=== PATIENT | male | born 1995 | race Two or more races ===

== ENCOUNTER 2017-09-03 15:53 | Emergency (ER) | payer SELFPAY ==
--- NOTE | 2017-09-03 16:45 | HMH.EDUTC ---
[facility] Disposition Clinical Impression: Polyarthralgia Disposition: Home, Self-Care Condition on Discharge: Good Prescriptions: predniSONE [Prednisone 20mg Tab] 20 mg PO BID 5 Days #10 tab Referrals: Lynn Thacker PA [Emergency Provider] - Time of Disposition: 16:58 Medical Decision Making - Michael Inquiry Pt receiving controlled substance: No Vital Signs: 09/03/17 16:49 Temperature 98.4 F Temperature Source Temporal Artery Scan Pulse Rate [Right Radial] 82 Respiratory Rate 18 Blood Pressure [Right Arm] 122/80 Blood Pressure Mean [Right Arm] 94 Blood Pressure Source [Right Arm] Automatic Cuff Blood Pressure Position [Right Arm] Sitting 02 Sat by Pulse Oximetry 99 Oxygen Delivery Method Room Air [facility] HPI - General Stated complaint: hip problems Time Seen by Provider: 09/03/17 16:45 - History of Present Illness Provider Complaint: Patient has had pain and swelling in his left knee off and on for several years. When he was seen in [place] he was told he had a type of arthritis that is usually only seen in men. A few weeks ago he started having pain in both hips as well. He went to the chiropractor who did Xrays and told him that she thought he has ankylosing spondylitis. Suggested he get a PCP for confirmation and referral. Onset (ago): week(s) (3) Location: back, lower extremity Radiation: back Quality: aching Associated symptoms: denies other symptoms Treatments prior to arrival: NSAID - Related Data Previous Rx's Medication Instructions Recorded predniSONE [Prednisone 20mg 20 mg PO BID 5 Days #10 tab 09/03/17 Tab] Allergies Allergy/AdvReac Type Severity Reaction Status Date / Time No Known Allergies Allergy Verified 09/03/17 16:15 [facility] History I have reviewed the patient's past medical history: Yes Medical History: Denies:: Cancer, Diabetes Mellitus Type 1, Diabetes Mellitus Type 2, MRSA Other Medical History: Reports: Arthritis Amputation: No Fractures: No - Social History Smoking Status: Never smoker Alcohol Intake: never - Psychiatric History Expresses thoughts of harming self/others: None Suicide Plan Description: No Plan ROS Obtained: Yes All systems reviewed & no additional complaints - Musculoskeletal Musculoskeletal: Reports joint pain, Reports back pain, Reports joint stiffness, Reports joint swelling, Reports limited range of motion, Reports stiffness Physical Exam - General General appearance: alert, in no apparent distress - Head Head exam: atraumatic, normocephalic, normal inspection - Eye Eye exam: Present: normal appearance, PERRL, EOMI - ENT ENT exam: Present: normal exam, normal oropharynx, mucous membranes moist, TM's normal bilaterally, normal external ear exam - Neck Neck exam: Present: normal inspection, full ROM, trachea midline. Absent: meningismus, lymphadenopathy - Chest Chest inspection: Present: normal inspection, symmetric chest wall rise. Absent: tenderness - Respiratory Respiratory exam: Present: normal lung sounds bilaterally. Absent: respiratory distress - Cardiovascular Cardiovascular exam: Present: regular rate, normal rhythm. Absent: JVD - Abdominal Exam Abdominal exam: Present: soft, normal bowel sounds. Absent: distention, tenderness, guarding - Extremities Exam Extremities exam: Present: normal inspection, full ROM, normal capillary refill. Absent: calf tenderness - Expanded Lower Extremity Exam Left Hip/Pelvis exam: Present: tenderness, deformity - Back Exam Back exam: Present: normal inspection, tenderness, vertebral tenderness - Neurological Exam Neurological exam: Present: alert, oriented X3 - Psychiatric Psychiatric exam: Present: normal affect, normal mood - Skin Skin exam: Present: warm, dry, intact, normal color - Lymphatic Lymphatic Findings: no adenopathy
[2017-09-03 16:49] VITALS: BP 122/80; PULSE 82; RESP 18; TEMP 36.9; O2SAT 99; BMI 26.6
[2017-09-03 17:59] VITALS: BP 118/65; PULSE 75; RESP 18; TEMP 36.8; O2SAT 100
== END 2017-09-03 17:45 | disposition home or self-care (01) ==
PROVIDERS: Emergency Provider Physician Assistant
DX: M25.50 Pain in unspecified joint (principal)
CPT/HCPCS: 99201

== ENCOUNTER → 2017-09-13 08:54 | Outpatient (CLI) | payer SELFPAY ==
[2017-09-13 14:01] LABS: C-Reactive Protein < 0.2 mg/L (0.0-0.9)
[2017-09-14 15:34] LABS: RA Latex Turbid. 19.5 IU/mL (0.0-13.9)
[2017-09-20 16:32] LABS: HLA-B27 Positive (.)
== END ==
PROVIDERS: Visit Provider Physician Assistant
DX: R53.83 Other fatigue (principal); M54.5 Low back pain; G89.29 Other chronic pain; M25.50 Pain in unspecified joint
CPT/HCPCS: 86140; 86431; 86812

== ENCOUNTER → 2018-09-19 14:15 | Outpatient (CLI) | payer SELFPAY ==
[2018-09-19 18:36] LABS: PH,Semen 8.5 (7.3-8.3); Semen Viscosity Normal (Normal)
[2018-09-19 18:37] LABS: 3Hr Motility Quality Rapid Progression (Mod-Rapid); 3Hr Sperm Motility 80 % (50-60); Motility Quality Rapid Progression (Mod-Rapid); Sperm Count 79 mil/mm3 (20-160); Sperm Motility 90 % (50-90)
[2018-09-19 18:38] LABS: Sperm Morphology Normal (Normal)
== END ==
PROVIDERS: Visit Provider Obstetrics & Gynecology
DX: Z31.41 Encounter for fertility testing (principal)
CPT/HCPCS: 89320

== ENCOUNTER → 2019-07-25 16:33 | Outpatient (CLI) | payer OTHER, SELFPAY ==
[2019-07-25 17:10] LABS: Basophils % 0.4 % (0.1-2.0); Eosinophils # 0.3 K/mm3 (0.0-0.4); Eosinophils % 4.5 % (0.1-12.0); Hematocrit 50.7 % (42.0-52.0); Hemoglobin 17.6 g/dL (14.1-18.0); Lymphocytes # 1.4 K/mm3 (0.7-4.5); Lymphocytes % 20.2 % (10-50); Mean Corpuscular HGB Conc 34.6 g/dL (31.8-35.4); Mean Corpuscular Hemoglobin 30.8 pg (27.0-31.2); Monocytes # 0.5 K/mm3 (0.1-1.0); Monocytes % 6.5 % (1.7-9.3); Neutrophils # 4.8 K/mm3 (1.8-7.8); Neutrophils % 68.4 % (37.0-80.0); Platelet Count 240 K/mm3 (142-424); Red Cell Distribution Width 13.2 % (11.5-17.5)
[2019-07-25 18:05] LABS: Erythrocyte Sedimentation Rate 2 mm/hr (0-15)
[2019-07-25 18:39] LABS: Alanine Aminotransferase 94 U/L (12-78); Albumin Level 4.4 gm/dL (3.4-5.0); Albumin/Globulin Ratio 1.4 (1.1-1.8); Alkaline Phosphatase 94 U/L (46-116); Anion Gap 15.8 mEq/L (5-15); Aspartate Amino Transferase 32 U/L (15-37); Bilirubin,Total 0.9 mg/dL (0.2-1.0); Blood Urea Nitrogen 13 mg/dL (7-18); C-Reactive Protein 0.4 mg/dL (0.0-0.9); Calcium 9.2 mg/dL (8.5-10.1); Carbon Dioxide 27 mmol/L (21.0-32.0); Chloride 104 mmol/L (98-107); Chol/HDL Ratio 6.6 (1-3.5); Cholesterol 212 mg/dL (140-200); Creatinine,Serum 0.82 mg/dL (0.70-1.30); Estimated Glomerular Filt Rate 114 ml/min (>60); GFR (African American) 139 ML/MIN (>60); Globulin 3.1 gm/dl (1.3-3.2); Glucose 91 mg/dL (74-106); HDL Cholesterol 32 mg/dL (27-67); LDL Cholesterol 147 mg/dL (0-130); Potassium 3.8 mmoL/L (3.5-5.1); Sodium 143 mmol/L (136-145); T4 (Thyroxine) 6.4 ug/dl (4.7-13.3); Thyroid Stimulating Hormone 1.02 uIU/ml (0.358-3.740); Total Protein,Serum 7.5 gm/dL (6.4-8.2); Triglycerides 163 mg/dL (30-200); VLDL Cholesterol 33 mg/dL (0-40)
[2019-07-27 15:30] LABS: Vitamin D 25 Hydroxy 8.9 ng/mL (30.0-100.0)
== END ==
PROVIDERS: Visit Provider Physician Assistant
DX: R35.0 Frequency of micturition (principal); M45.9 Ankylosing spondylitis of unspecified sites in spine; E55.9 Vitamin D deficiency, unspecified
CPT/HCPCS: 80053; 80061; 82652; 84436; 84443; 85025; 85651; 86140

== ENCOUNTER → 2019-08-22 13:02 | Outpatient (CLI) | payer OTHER, SELFPAY ==
--- NOTE | 2019-08-22 13:03 | MR_ITS ---
PROCEDURE: MR LUMBAR SPINE WO CON CLINICAL INDICATION: Ankylosing spondylitis Bilateral back pain radiating into the hips COMPARISON: No exams were available for comparison TECHNIQUE: Standard multiplanar multiecho sequences are performed without contrast. 3-D MIP and myelographic images are also rendered and reviewed FINDINGS: There is normal alignment. The spinal cord ends at the L1 level. The disc spaces are well preserved. No significant arthritic changes. No disc bulges protrusions or herniations evident. No fracture or dislocation. IMPRESSION: Negative MRI of the lumbar spine Dictated by: Roly Kenney MD 08/23/2019 09:40 Electronically signed by Roly Kenney MD in [place] 08/23/2019 09:40
== END ==
PROVIDERS: PCP Physician Assistant; Visit Provider Physician Assistant
DX: M45.9 Ankylosing spondylitis of unspecified sites in spine (principal)
CPT/HCPCS: 72148; 76376

== ENCOUNTER → 2021-10-13 08:51 | Outpatient (CLI) | payer SELFPAY ==
--- NOTE | 2021-10-13 08:57 | US_ITS ---
FINAL REPORT CLINICAL HISTORY: ABD PAIN FINDINGS: Ultrasound images of the right upper quadrant were obtained. The liver parenchyma is increased echogenicity. The gallbladder is incompletely distended. There is sludge in the gallbladder. There are no gallstones. The common duct is normal. Limited images of the right kidney are unremarkable. IMPRESSION: Fatty liver. Sludge in the gallbladder. Reviewed, Interpreted and Dictated by Siddharth Pablo MD Transcribed by Victorino Jones Authenticated by Siddharth Pablo MD on 10/13/2021 11:36:[address] [facility]
== END ==
PROVIDERS: PCP Nurse Practitioner Family; Visit Provider Nurse Practitioner Family
DX: R10.11 Right upper quadrant pain (principal); R74.01 Elevation of levels of liver transaminase levels
CPT/HCPCS: 76705

== ENCOUNTER → 2022-05-03 10:10 | Outpatient (CLI) | payer OTHER, SELFPAY ==
[2022-05-03 20:07] LABS: Basophils # 0.1 K/mm3 (0-0.2); Basophils % 0.8 % (0.1-2.0); Eosinophils # 0.3 K/mm3 (0.0-0.4); Eosinophils % 5.2 % (0.1-12.0); Hematocrit 52.7 % (42.0-52.0); Lymphocytes # 1.8 K/mm3 (0.7-4.5); Lymphocytes % 31.9 % (10-50); Mean Corpuscular HGB Conc 34.3 g/dL (31.8-35.4); Mean Corpuscular Hemoglobin 31.7 pg (27.0-31.2); Mean Corpuscular Volume 92.6 fl (80-94); Mean Platelet Volume 10.2 fl (7.4-10.4); Monocytes # 0.3 K/mm3 (0.1-1.0); Monocytes % 5.6 % (1.7-9.3); Neutrophils # 3.2 K/mm3 (1.8-7.8); Neutrophils % 56.4 % (37.0-80.0); Platelet Count 255 K/mm3 (142-424); Red Blood Count 5.69 M/mm3 (4.60-6.20); Red Cell Distribution Width 13.8 % (11.5-17.5); White Blood Count 5.6 K/mm3 (4.8-10.8)
[2022-05-03 20:16] LABS: Alanine Aminotransferase 68 U/L (12-78); Albumin Level 4.9 g/dl (3.5-5.0); Albumin/Globulin Ratio 1.8 (1.1-1.8); Alkaline Phosphatase 109 U/L (38-126); Anion Gap 20.1 mEq/L (5-15); Aspartate Amino Transferase 42 U/L (17-59); Bilirubin,Total 1.1 mg/dl (0.2-1.3); Blood Urea Nitrogen 14 mg/dl (9-20); Calcium 10.1 mg/dl (8.4-10.2); Carbon Dioxide 25 mmol/L (22.0-30.0); Chloride 99 mmol/L (98-107); Chol/HDL Ratio 7.1 (1-3.5); Cholesterol 220 mg/dl (140-200); Estimated Glomerular Filt Rate 134 ml/min (>60); GFR (African American) 162 ML/MIN (>60); Globulin 2.8 g/dL (1.3-3.2); Glucose 97 mg/dl (74-100); HDL Cholesterol 31 mg/dl (40-60); Potassium 4.1 mmoL/L (3.5-5.1); Sodium 140 mmol/L (136-145); Total Protein,Serum 7.7 g/dl (6.3-8.2); Triglycerides 189 mg/dl (30-150); VLDL Cholesterol 38 mg/dL (0-40)
[2022-05-03 20:27] LABS: Direct LDL Cholesterol 120.38 mg/dL (100-129)
[2022-05-03 20:34] LABS: 25-OH Vitamin D, Total 14.4 ng/mL (30-100)
[2022-05-03 20:47] LABS: Thyroid Stimulating Hormone 1.05 uIU/mL (0.465-4.68)
== END ==
PROVIDERS: PCP Student in an Organized Health Care Education/Training Program; Visit Provider Student in an Organized Health Care Education/Training Program
DX: M45.9 Ankylosing spondylitis of unspecified sites in spine (principal); R53.83 Other fatigue
CPT/HCPCS: 80053; 80061; 82306; 84443; 85025

== ENCOUNTER → 2023-03-16 08:22 | Outpatient (CLI) | payer SELFPAY ==
--- NOTE | 2023-03-16 08:34 | US_ITS ---
FINAL REPORT TECHNIQUE: Sonographic images of the right upper quadrant were obtained. CLINICAL HISTORY: RUQ PAIN COMPARISON: 10/13/2021 FINDINGS: PANCREAS: Obscured. LIVER: Fatty infiltrated. No focal hepatic lesion. No intrahepatic biliary ductal dilatation. GALLBLADDER: No gallstones. No gallbladder wall thickening or pericholecystic fluid. COMMON DUCT: 3 mm. Normal for age. RIGHT KIDNEY: The right kidney measures 11.8 cm. There is no hydronephrosis, mass, or stone. FREE FLUID: None. IMPRESSION: Fatty liver. Authenticated and ERN
== END ==
LOC: RAD 08:23
PROVIDERS: PCP Nurse Practitioner Family; Visit Provider Nurse Practitioner Family
DX: R10.11 Right upper quadrant pain (principal)
CPT/HCPCS: 76705

== ENCOUNTER → 2023-05-31 10:03 | Outpatient (CLI) | payer SELFPAY ==
[2023-05-31 19:19] LABS: Anion Gap 14.8 mEq/L (5-15); Blood Urea Nitrogen 10 mg/dl (9-20); Calcium 8.8 mg/dl (8.4-10.2); Carbon Dioxide 24 mmol/L (22.0-30.0); Chloride 104 mmol/L (98-107); Estimated Glomerular Filt Rate 133 ml/min (>60); GFR (African American) 161 ML/MIN (>60); Glucose 85 mg/dl (74-100); Potassium 3.8 mmoL/L (3.5-5.1); Sodium 139 mmol/L (136-145)
== END ==
LOC: LAB.DROPOF 06-01 10:03
PROVIDERS: PCP Family Medicine; Visit Provider Family Medicine
DX: R35.0 Frequency of micturition (principal)
CPT/HCPCS: 80048

== ENCOUNTER 2024-06-17 10:34 | Outpatient (CLI) | payer BC, SELFPAY ==
[2024-06-17 11:59] LABS: Erythrocyte Sedimentation Rate 3 mm/hr (0-15)
[2024-06-18 05:33] LABS: HBsAg Screen Negative (Negative); HCV Ab Non Reactive (Non Reactive); Hep A Ab, IGM Negative (Negative); Hep B Core Ab, IgM Negative (Negative)
[2024-06-20 15:08] LABS: QuantiFERON-TB Gold Plus Negative (Negative)
[2024-06-26 17:13] LABS: HLA-B27 Positive (.)
== END 2024-06-17 23:59 | disposition home or self-care (01) ==
LOC: LAB 10:35
PROVIDERS: PCP Nurse Practitioner Family; Visit Provider Nurse Practitioner
DX: M45.6 Ankylosing spondylitis lumbar region (principal); Z79.899 Other long term (current) drug therapy
CPT/HCPCS: 36415; 80074; 85651; 86140; 86480; 86812

== ENCOUNTER 2024-07-27 13:05 | Emergency (ER) | payer SELFPAY ==
[2024-07-27] VITALS (9 sets, daily range): BP systolic 132–166; BP diastolic 86–113; PULSE 75–105; RESP 18; TEMP 36.8; O2SAT 96–100; BMI 31.1
--- NOTE | 2024-07-27 13:30 | ECG_ITS ---
APPROVED REPORT Exam: Resting ECG HR:94 bpm ECG Measurements Heart Rate 94 AXES FL 141 P 50 QRSd 89 QRS 48 QT 344 T 15 QTc 395 Conclusion SINUS RHYTHM NORMAL ECG Electronically signed by : MELVIN HAY, 07/28/2024 08:13:28
--- NOTE | 2024-07-27 13:32 | PC.NURSE ---
FSBS IS 122 @[id number].
--- NOTE | 2024-07-27 13:38 | CT_ITS ---
PROCEDURE INFORMATION: Exam: CT Head Without Contrast Exam date and time: 07/27/2024 2:21 PM Age: 29 years old Clinical indication: Dizziness TECHNIQUE: Imaging protocol: Computed tomography of the head without contrast. Radiation optimization: All CT scans at this facility use at least one of these dose optimization techniques: automated exposure control; mA and/or kV adjustment per patient size (includes targeted exams where dose is matched to clinical indication); or iterative reconstruction. COMPARISON: No relevant prior studies available. FINDINGS: Limitations: Mild motion artifact. Brain: Normal. No hemorrhage. Unremarkable white matter. No mass effect. Cerebral ventricles: No ventriculomegaly. Paranasal sinuses: Visualized sinuses are unremarkable. No fluid levels. Mastoid air cells: Visualized mastoid air cells are well aerated. Bones: Unremarkable. No acute fracture. Soft tissues: Unremarkable. IMPRESSION: No acute findings.
--- NOTE | 2024-07-27 13:43 | CT_ITS ---
PROCEDURE INFORMATION: Exam: CTA Head With Contrast, Arteriography Exam date and time: 07/27/2024 2:24 PM Age: 29 years old Clinical indication: Stroke-like symptoms; Dizziness/giddiness; Additional info: Possible stroke TECHNIQUE: Imaging protocol: Computed tomographic angiography of the head with contrast. Exam focused on the arteries. 3D rendering (Not supervised by radiologist): MIP and/or 3D reconstructed images were created by the technologist. Radiation optimization: All CT scans at this facility use at least one of these dose optimization techniques: automated exposure control; mA and/or kV adjustment per patient size (includes targeted exams where dose is matched to clinical indication); or iterative reconstruction. Contrast material: ISOVUE; Contrast volume: 80 ml; Contrast route: INTRAVENOUS (IV); COMPARISON: CT ANGIO HEAD 07/27/2024 2:24 PM FINDINGS: ANTERIOR CIRCULATION: Right internal carotid artery: Intracranial segment is patent with no significant stenosis. No aneurysm. Right middle cerebral artery: No occlusion or significant stenosis. No aneurysm. Right anterior cerebral artery: No occlusion or significant stenosis. No aneurysm. Left internal carotid artery: Intracranial segment is patent with no significant stenosis. No aneurysm. Left middle cerebral artery: No occlusion or significant stenosis. No aneurysm. Left anterior cerebral artery: No occlusion or significant stenosis. No aneurysm. POSTERIOR CIRCULATION: Right vertebral artery: No occlusion or significant stenosis. No aneurysm. Left vertebral artery: No occlusion or significant stenosis. No aneurysm. Basilar artery: No occlusion or significant stenosis. No aneurysm. Right posterior cerebral artery: No occlusion or significant stenosis. No aneurysm. Left posterior cerebral artery: No occlusion or significant stenosis. No aneurysm. Brain: No definite mass, mass effect, or midline shift. Cerebral ventricles: No ventriculomegaly. Bones/joints: Unremarkable. No acute fracture. Soft tissues: Unremarkable. IMPRESSION: No large vessel stenosis or occlusion.
--- NOTE | 2024-07-27 13:43 | CT_ITS ---
PROCEDURE INFORMATION: Exam: CTA Neck With Contrast Exam date and time: 07/27/2024 2:24 PM Age: 29 years old Clinical indication: Stroke-like symptoms; Dizziness/giddiness; Additional info: Possible stroke TECHNIQUE: Imaging protocol: Computed tomographic angiography of the neck with contrast. Exam focused on the cervical segments of the vasculature. 3D rendering (Not supervised by radiologist): MIP and/or 3D reconstructed images were created by the technologist. Radiation optimization: All CT scans at this facility use at least one of these dose optimization techniques: automated exposure control; mA and/or kV adjustment per patient size (includes targeted exams where dose is matched to clinical indication); or iterative reconstruction. Contrast material: ISOVUE; Contrast volume: 80 ml; Contrast route: INTRAVENOUS (IV); COMPARISON: CT ANGIO HEAD 07/27/2024 2:24 PM FINDINGS: Right common carotid artery: No stenosis. No dissection or occlusion. Right internal carotid artery: No stenosis of the extracranial segment. No dissection or occlusion. Right external carotid artery: No occlusion or stenosis of the origin. Left common carotid artery: No stenosis. No dissection or occlusion. Left internal carotid artery: No stenosis of the extracranial segment. No dissection or occlusion. Left external carotid artery: No occlusion or stenosis of the origin. Right vertebral artery: No stenosis. No dissection or occlusion. Left vertebral artery: No stenosis. No dissection or occlusion. Soft tissues: Normal. No significant soft tissue swelling. Bones/joints: No acute fracture. IMPRESSION: No stenosis or occlusion. REFERENCES: NASCET CRITERIA. The degree of stenosis in the cervical segment of the internal carotid artery is based on NASCET criteria. Normal is no stenosis. Mild is less than 50% stenosis. Moderate is 50-69% stenosis. Severe is 70% to 99% stenosis. Total occlusion is no detectable patent lumen.
--- NOTE | 2024-07-27 13:46 | [facility].EDGENADL ---
Discharge Plan Disposition Patient Disposition: Home, Self-Care Condition: Serious Prescriptions Prescriptions: New meclizine 25 mg tablet 25 mg PO BID Qty: 60 0RF No Action valsartan 80 mg tablet 80 mg PO DAILY Patient Comments: TAKE 1 TABLET BY MOUTH ONCE DAILY buspirone 10 mg tablet 10 mg PO HS Patient Comments: TAKE 1 TABLET BY MOUTH THREE TIMES DAILY amlodipine [Norvasc] 2.5 mg tablet 2.5 mg PO DAILY Qty: 30 2RF cholecalciferol (vitamin D3) 1,250 mcg (50,000 unit) capsule 50,000 unit PO QWEEK Qty: 14 2RF Referrals Follow up/Referrals: Ruth Sifuentes APRN [Primary Care Provider] - See instructions Activity Restrictions/Add. Instructions Additional Instructions/Restrictions: Increase fluids and rest. Follow-up with your normal doctor this week. Any further problems or concerns please return to the ER. Clinical Impressions Clinical Impression: HTN (hypertension), Benign paroxysmal positional vertigo Ankylosing spondylitis Qualifiers: Ankylosing spondylitis location: unspecified site of spine Qualified Code(s): M45.9 - Ankylosing spondylitis of unspecified sites in spine Instructions Patient Instructions: High Blood Pressure, Dizziness, Nonvertigo Print Language Print Language: Arabic Discharge ED Provider: Kai Braxton General Adult HPI <Tosin Lovelace (ED)SILVINO - Last Filed: 07/27/24 16:08> General Chief complaint: Dizziness Stated complaint: elevated BP swelling lips soa dizziness Time Seen by Provider: 07/27/24 13:28 Mode of Arrival: Ambulatory Limitations: No Limitations Description of Symptoms (Recalled from ER Triage Doc. by RN): Patient presents ambulatory to triage with . Patient speaks limited Armenian. at bedside and fluent. States the patient was hypertensive at home on a home monitor with a DBP of 111. States the patient is also having lip swelling to the left lip. States the patient takes Valsartan for hypertension. Patient also endorses some dizziness and nausea. Patient endorses shortness of air. History of Present Illness HPI narrative: 29-year-old male presents to the ED today for complaint of elevated blood pressure at home this morning. They were at work and he started having dizziness and nausea. He also started having some shortness of air. He denies chest pain or vomiting. He says it has been 2 months and he usually will have dry heaves in the morning but never will vomit. He believes this is related to reflux but does not take his medicine. He does have random lip swelling as well. states this happens randomly and she cannot attribute it to anything specific. He says that the dizziness that started today feels like the world is spinning around him. He is having vision blurriness as well. He denies any headache. His blood pressure is 166/95. He has ankylosing spondylosis. He is supposed to be starting Humira for this. He does take amlodipine, BuSpar and valsartan. Related Data Home Medications ?Medication ?Instructions ?Recorded ?Confirmed buspirone 10 mg tablet 10 mg PO HS 05/31/23 07/27/24 valsartan 80 mg tablet 80 mg PO DAILY 05/31/23 07/27/24 Previous Rx's ?Medication ?Instructions ?Recorded cholecalciferol (vitamin D3) 1,250 50,000 unit PO QWEEK #14 caps 07/29/19 mcg (50,000 unit) capsule amlodipine 2.5 mg tablet (Norvasc) 2.5 mg PO DAILY #30 tabs 05/31/23 meclizine 25 mg tablet 25 mg PO BID #60 tabs 07/27/24 Allergies Allergy/AdvReac Type Severity Reaction Status Date / Time No Known Allergies Allergy Verified 05/31/23 14:34 [facility] <Tosin Lovelace (ED), [employer] INBOARD/OUTBOARD - Last Filed: 07/27/24 16:08> [facility] Disclaimer: The information contained in this section may have been updated after the patient was seen, as this information can be updated by other users. Medical History Ankylosing spondylitis Back pain Polyarthralgia Social History Smoking Status: Current every day smoker tobacco type: cigarettes packs per day: 1 alcohol intake: current alcohol intake frequency: a few times a week substance use type: denies use current occupational status: employed Travel in the last 8 weeks: Inside the [place] household members: significant other housing: house Have you lived/traveled outside US in past 30 days?: No Contact w/someone who lives/traveled outside US past 30 days?: No Exposure to someone with infectious disease in past 14 days?: No Do you have a fever (greater than 100.4 F or 38 C)?: No Have you tested positive for COVID-19: No Exposed to someone with COVID-19 in past 14 days?: No Do you have a sore throat?: No Do you have a cough?: No Do you have any weakness?: No Do you have any diarrhea?: No Are you experiencing any unusual bleeding?: No Do you have any muscle aches/pain?: No Do you have any abdominal pain?: No Are you experiencing loss of taste or smell?: No Other Medical History Have you received the Flu Vaccine for this season: Yes Have you received the Pneumonia Vaccine: No <Tosin Lovelace (ED), [employer] INBOARD/OUTBOARD - Last Filed: 07/27/24 16:08> ROS Obtained: Yes Systems reviewed as appropriate & no additional complaints except as documented Constitutional Constitutional: Reports as per HPI Physical Exam <Tosin Lovelace (ED), [employer]BO[employer]/OUTBOARD - Last Filed: 07/27/24 16:08> General General appearance: alert and anxious Head Head exam: atraumatic and normocephalic Eye Eye exam: Present PERRL and EOMI ENT ENT exam: Present mucous membranes moist Neck Neck exam: Present normal inspection, full ROM and trachea midline Respiratory Respiratory exam: Present normal lung sounds bilaterally Cardiovascular Cardiovascular exam: Present normal rhythm, tachycardia, normal heart sounds, +S1 and +S2 Abdominal Exam Abdominal exam: Present soft Abdominal tenderness: Present epigastrium Extremities Exam Extremities exam: Present normal inspection, full ROM and normal capillary refill Neurological Exam Neurological exam: Present alert, oriented X3 and normal gait Skin Skin exam: Present warm, dry and intact Medical Decision Making <Tosin Lovelace (ED), [employer] INBOARD/OUTBOARD - Last Filed: 07/27/24 16:08> Medical Records Screening: Per USPSTF and CDC recommendations, given the prevalence of disease in our region, it is our hospital?s policy to screen for HIV and viral Hepatitis for all patients aged 18 and over and those with ongoing risk factors. Michael Inquiry Pt receiving controlled substance: No Michael was queried for this patient: No Vital Signs: 07/27/24 13:18 07/27/24 13:27 07/27/24 13:30 Temperature 98.3 F Temperature Source Oral Pulse Rate 97 H 87 Pulse Rate [Radial] 105 H Respiratory Rate 18 Blood Pressure 141/99 H 147/113 H Blood Pressure [R Arm] 166/95 H Blood Pressure Mean [R Arm] 118 Blood Pressure Position [R Arm] Sitting 02 Sat by Pulse Oximetry 100 99 100 Oxygen Delivery Method Room Air Room Air Room Air 07/27/24 13:45 07/27/24 14:00 07/27/24 14:30 Temperature Temperature Source Pulse Rate 79 78 82 Pulse Rate [Radial] Respiratory Rate Blood Pressure 139/101 H 137/98 H 159/108 H Blood Pressure [R Arm] Blood Pressure Mean [R Arm] Blood Pressure Position [R Arm] 02 Sat by Pulse Oximetry 97 96 99 Oxygen Delivery Method Room Air Room Air Room Air 07/27/24 14:44 07/27/24 15:00 Temperature Temperature Source Pulse Rate 85 84 Pulse Rate [Radial] Respiratory Rate Blood Pressure 146/86 H 156/101 H Blood Pressure [R Arm] Blood Pressure Mean [R Arm] Blood Pressure Position [R Arm] 02 Sat by Pulse Oximetry 97 98 Oxygen Delivery Method Room Air Room Air Lab Data Lab results reviewed: Yes I reviewed the patient's lab results. Lab Results 07/27/24 14:06: WBC 6.0, RBC 5.46, Hgb 17.2, Hct 47.4, MCV 86.8, MCH 31.5 H, MCHC 36.3 H, RDW 13.0, Plt Count 256, MPV 11.0 H, Neut % (Auto) 55.2, Lymph % (Auto) 35.2, Martin % (Auto) 7.2, Eos % (Auto) 1.8, Baso % (Auto) 0.3, Neut # (Auto) 3.3, Lymph # (Auto) 2.1, Martin # (Auto) 0.4, Eos # (Auto) 0.1, Baso # (Auto) 0.0, Sodium 142, Potassium 3.6, Chloride 105, Carbon Dioxide 27, Anion Gap 13.6, BUN 15, Creatinine 0.80, Estimated Creat Clear 162, Estimated GFR 114, Est GFR ( Amer) 137, Glucose 115 H, Calcium 9.6, Magnesium 1.9, Total Bilirubin 0.8, AST 70 H, ALT 143 H, Alkaline Phosphatase 99, Troponin I < 0.01, Total Protein 8.0, Albumin 4.9, Globulin 3.1, Albumin/Globulin Ratio 1.6, Lipase 104 07/27/24 14:06 07/27/24 14:06 Orders (Tests/Meds): ED MEDICATIONS Generic Name Dose Route Start Last Admin Trade Name Freq PRN Reason Stop Dose Admin Sodium Chloride 10 ml 07/27/24 13:38 07/27/24 14:40 Sodium Chloride 0.9% 10ml Vial IV 08/26/24 13:37 10 ml NEEDED PRN Administration dilute protonix Sodium Chloride 10 ml 07/27/24 14:34 07/27/24 14:35 Sodium Chloride 0.9% 10ml Syr (Rad Only) IV 08/26/24 14:33 10 ml NEEDED PRN Administration Maintain IV Site Discontinued Medications Generic Name Dose Route Start Last Admin Trade Name Freq PRN Reason Stop Dose Admin Acetaminophen 1,000 mg 07/27/24 14:08 07/27/24 14:52 Acetaminophen 1,000mg/100ml Vial IV 07/27/24 14:09 1,000 mg ONCE ONE Administration Aspirin 324 mg 07/27/24 13:38 07/27/24 14:40 Aspirin 81mg Chewable Tablet PO 07/27/24 13:39 324 mg ONCE ONE Administration Iopamidol 80 ml 07/27/24 14:34 07/27/24 14:35 Iopamidol-370 (76%);100ml Bottle IV 07/27/24 14:35 80 ml ONCE ONE Administration Ketorolac Tromethamine 15 mg 07/27/24 14:59 07/27/24 15:44 Ketorolac 30mg/Ml Vial IV 07/27/24 15:00 15 mg ONCE ONE Administration Meclizine HCl 25 mg 07/27/24 15:13 07/27/24 15:44 Meclizine 25mg Tablet PO 07/27/24 15:14 25 mg ONCE ONE Administration Metoclopramide HCl 10 mg 07/27/24 14:59 07/27/24 15:44 Metoclopramide 10mg Tablet PO 07/27/24 15:00 10 mg ONCE ONE Administration Pantoprazole Sodium 40 mg 07/27/24 13:38 07/27/24 14:30 Pantoprazole 40mg Vial IV 07/27/24 13:39 40 mg ONCE ONE Administration Sodium Chloride 50 ml 07/27/24 14:34 07/27/24 14:35 0.9 % Sodium Chloride 50 Ml Vial IV 07/27/24 14:35 50 ml ONCE ONE Administration ORDERS Category Date Time Status CT angio head Stat Cat Scan 07/27/24 13:[address] angio neck Stat Cat Scan 07/27/24 13:[address] head/brain wo con Stat Cat Scan 07/27/24 13:38 Completed CBC [Complete Blood Count Auto Diff] Stat Lab 07/27/24 14:06 Completed Comprehensive Metabolic Panel Stat Lab 07/27/24 14:06 Completed Lipase Stat Lab 07/27/24 14:06 Completed Magnesium Stat Lab 07/27/24 14:06 Completed Troponin I Stat Lab 07/27/24 14:06 Ordered Medical Decision Narrative: Patient is a 29-year-old male presenting to the emergency department for evaluation of elevated blood pressure at home with dizziness, nausea and shortness of air. He has over the last 2 months had some nausea every morning but no vomiting. He blames this on his reflux but forgets to take his medications he does deny headaches but feels like the world is moving around him. Patient is hemodynamically stable and nontoxic-appearing upon arrival, afebrile. However I have concern with his dizziness that I consulted Dr. Braxton. Differential diagnosis includes stroke, vertigo, viral illness, migraine among others. Workup will be conducted with lab work including normal labs CBC CMP, mag, troponin. I will scan his head and do CTAs of neck and head we will also get an EKG. Would like to give patient some Protonix for his complaint of epigastric discomfort and history of reflux.. Initial inventions include Protonix, Toradol and Reglan. Patient's labs were not actionable including the troponin and electrolytes. Please see radiology report for formal imaging as CT scans were negative. Upon repeat evaluation patient's symptoms have resolved and he is feeling better. We did discuss his vision and he says he has glasses but does not wear them this is a chronic problem. Patient is stable and can follow-up with primary care. Safe for discharge. Braxton: I was consulted by the RUBA, and we discussed the complexity of problems being addressed. I approved the treatment and management plan for this patient's care in the emergency department, thus performing a substantial portion of the medical decision making. I personally evaluated the patient. NIH 0, normal [id number] and [id number], no nystagmus, peripheral visual castillo intact. Patient does have poor visual acuity but admits that he has always had blurry vision and needs glasses. Patient states he does not have headache but does have some discomfort at the back of the head. I have very low suspicion for acute intracranial abnormality, however this will still be evaluated with CT imaging. Higher suspicion for possible vertigo, atypical migraine, electrolyte abnormality. ECG personally interpreted demonstrates normal sinus rhythm, rate 94, normal axis, normal AR and QTc, no STEMI. CT head personally turbid it does not demonstrate acute intracranial bleed, mass, or midline shift. See radiology read for final interpreted. CT angiography does not demonstrate large vessel occlusion, stenosis, or other vascular abnormality. Patient received IV acetaminophen, Toradol, Reglan, meclizine for symptomatic management. He had also received pantoprazole after reporting a history of reflux and mild chest pain. Labs been reviewed and are reassuring, not acutely actionable, no actionable electrolyte abnormalities, initial troponin undetectably low less than 0.01. Patient handed off to Dr. Schuster in stable condition pending reassessment. Kai Braxton MD <Kai Braxton MD - Last Filed: 07/27/24 15:25> Vital Signs: 07/27/24 13:18 07/27/24 13:27 07/27/24 13:30 Temperature 98.3 F Temperature Source Oral Pulse Rate 97 H 87 Pulse Rate [Radial] 105 H Respiratory Rate 18 Blood Pressure 141/99 H 147/113 H Blood Pressure [R Arm] 166/95 H Blood Pressure Mean [R Arm] 118 Blood Pressure Position [R Arm] Sitting 02 Sat by Pulse Oximetry 100 99 100 Oxygen Delivery Method Room Air Room Air Room Air 07/27/24 13:45 07/27/24 14:00 07/27/24 14:30 Temperature Temperature Source Pulse Rate 79 78 82 Pulse Rate [Radial] Respiratory Rate Blood Pressure 139/101 H 137/98 H 159/108 H Blood Pressure [R Arm] Blood Pressure Mean [R Arm] Blood Pressure Position [R Arm] 02 Sat by Pulse Oximetry 97 96 99 Oxygen Delivery Method Room Air Room Air Room Air 07/27/24 14:44 07/27/24 15:00 Temperature Temperature Source Pulse Rate 85 84 Pulse Rate [Radial] Respiratory Rate Blood Pressure 146/86 H 156/101 H Blood Pressure [R Arm] Blood Pressure Mean [R Arm] Blood Pressure Position [R Arm] 02 Sat by Pulse Oximetry 97 98 Oxygen Delivery Method Room Air Room Air Lab Data Lab Results 07/27/24 14:06: WBC 6.0, RBC 5.46, Hgb 17.2, Hct 47.4, MCV 86.8, MCH 31.5 H, MCHC 36.3 H, RDW 13.0, Plt Count 256, MPV 11.0 H, Neut % (Auto) 55.2, Lymph % (Auto) 35.2, Martin % (Auto) 7.2, Eos % (Auto) 1.8, Baso % (Auto) 0.3, Neut # (Auto) 3.3, Lymph # (Auto) 2.1, Martin # (Auto) 0.4, Eos # (Auto) 0.1, Baso # (Auto) 0.0, Sodium 142, Potassium 3.6, Chloride 105, Carbon Dioxide 27, Anion Gap 13.6, BUN 15, Creatinine 0.80, Estimated Creat Clear 162, Estimated GFR 114, Est GFR ( Amer) 137, Glucose 115 H, Calcium 9.6, Magnesium 1.9, Total Bilirubin 0.8, AST 70 H, ALT 143 H, Alkaline Phosphatase 99, Troponin I < 0.01, Total Protein 8.0, Albumin 4.9, Globulin 3.1, Albumin/Globulin Ratio 1.6, Lipase 104 Orders (Tests/Meds): ED MEDICATIONS Generic Name Dose Route Start Last Admin Trade Name Freq PRN Reason Stop Dose Admin Sodium Chloride 10 ml 07/27/24 13:38 07/27/24 14:40 Sodium Chloride 0.9% 10ml Vial IV 08/26/24 13:37 10 ml NEEDED PRN Administration dilute protonix Sodium Chloride 10 ml 07/27/24 14:34 07/27/24 14:35 Sodium Chloride 0.9% 10ml Syr (Rad Only) IV 08/26/24 14:33 10 ml NEEDED PRN Administration Maintain IV Site Discontinued Medications Generic Name Dose Route Start Last Admin Trade Name Freq PRN Reason Stop Dose Admin Acetaminophen 1,000 mg 07/27/24 14:08 07/27/24 14:52 Acetaminophen 1,000mg/100ml Vial IV 07/27/24 14:09 1,000 mg ONCE ONE Administration Aspirin 324 mg 07/27/24 13:38 07/27/24 14:40 Aspirin 81mg Chewable Tablet PO 07/27/24 13:39 324 mg ONCE ONE Administration Iopamidol 80 ml 07/27/24 14:34 07/27/24 14:35 Iopamidol-370 (76%);100ml Bottle IV 07/27/24 14:35 80 ml ONCE ONE Administration Ketorolac Tromethamine 15 mg 07/27/24 14:59 07/27/24 15:44 Ketorolac 30mg/Ml Vial IV 07/27/24 15:00 15 mg ONCE ONE Administration Meclizine HCl 25 mg 07/27/24 15:13 07/27/24 15:44 Meclizine 25mg Tablet PO 07/27/24 15:14 25 mg ONCE ONE Administration Metoclopramide HCl 10 mg 07/27/24 14:59 07/27/24 15:44 Metoclopramide 10mg Tablet PO 07/27/24 15:00 10 mg ONCE ONE Administration Pantoprazole Sodium 40 mg 07/27/24 13:38 07/27/24 14:30 Pantoprazole 40mg Vial IV 07/27/24 13:39 40 mg ONCE ONE Administration Sodium Chloride 50 ml 07/27/24 14:34 07/27/24 14:35 0.9 % Sodium Chloride 50 Ml Vial IV 07/27/24 14:35 50 ml ONCE ONE Administration ORDERS Category Date Time Status CT angio head Stat Cat Scan 07/27/24 13:[address] angio neck Stat Cat Scan 07/27/24 13:[address] head/brain wo con Stat Cat Scan 07/27/24 13:38 Completed CBC [Complete Blood Count Auto Diff] Stat Lab 07/27/24 14:06 Completed Comprehensive Metabolic Panel Stat Lab 07/27/24 14:06 Completed Lipase Stat Lab 07/27/24 14:06 Completed Magnesium Stat Lab 07/27/24 14:06 Completed Troponin I Stat Lab 07/27/24 14:06 Ordered Medical Decision Narrative: Braxton: I was consulted by the RUBA, and we discussed the complexity of problems being addressed. I approved the treatment and management plan for this patient's care in the emergency department, thus performing a substantial portion of the medical decision making. I personally evaluated the patient. NIH 0, normal [id number] and [id number], no nystagmus, peripheral visual castillo intact. Patient does have poor visual acuity but admits that he has always had blurry vision and needs glasses. Patient states he does not have headache but does have some discomfort at the back of the head. I have very low suspicion for acute intracranial abnormality, however this will still be evaluated with CT imaging. Higher suspicion for possible vertigo, atypical migraine, electrolyte abnormality. ECG personally interpreted demonstrates normal sinus rhythm, rate 94, normal axis, normal AR and QTc, no STEMI. CT head personally turbid it does not demonstrate acute intracranial bleed, mass, or midline shift. See radiology read for final interpreted. CT angiography does not demonstrate large vessel occlusion, stenosis, or other vascular abnormality. Patient received IV acetaminophen, Toradol, Reglan, meclizine for symptomatic management. He had also received pantoprazole after reporting a history of reflux and mild chest pain. Labs been reviewed and are reassuring, not acutely actionable, no actionable electrolyte abnormalities, initial troponin undetectably low less than 0.01. Patient handed off to Dr. Schuster in stable condition pending reassessment. Kai Braxton MD <Bud Schuster MD - Last Filed: 07/27/24 16:32> Vital Signs: 07/27/24 13:18 07/27/24 13:27 07/27/24 13:30 Temperature 98.3 F Temperature Source Oral Pulse Rate 97 H 87 Pulse Rate [Radial] 105 H Respiratory Rate 18 Blood Pressure 141/99 H 147/113 H Blood Pressure [R Arm] 166/95 H Blood Pressure Mean [R Arm] 118 Blood Pressure Position [R Arm] Sitting 02 Sat by Pulse Oximetry 100 99 100 Oxygen Delivery Method Room Air Room Air Room Air 07/27/24 13:45 07/27/24 14:00 07/27/24 14:30 Temperature Temperature Source Pulse Rate 79 78 82 Pulse Rate [Radial] Respiratory Rate Blood Pressure 139/101 H 137/98 H 159/108 H Blood Pressure [R Arm] Blood Pressure Mean [R Arm] Blood Pressure Position [R Arm] 02 Sat by Pulse Oximetry 97 96 99 Oxygen Delivery Method Room Air Room Air Room Air 07/27/24 14:44 07/27/24 15:00 Temperature Temperature Source Pulse Rate 85 84 Pulse Rate [Radial] Respiratory Rate Blood Pressure 146/86 H 156/101 H Blood Pressure [R Arm] Blood Pressure Mean [R Arm] Blood Pressure Position [R Arm] 02 Sat by Pulse Oximetry 97 98 Oxygen Delivery Method Room Air Room Air Lab Data Lab Results 07/27/24 14:06: WBC 6.0, RBC 5.46, Hgb 17.2, Hct 47.4, MCV 86.8, MCH 31.5 H, MCHC 36.3 H, RDW 13.0, Plt Count 256, MPV 11.0 H, Neut % (Auto) 55.2, Lymph % (Auto) 35.2, Martin % (Auto) 7.2, Eos % (Auto) 1.8, Baso % (Auto) 0.3, Neut # (Auto) 3.3, Lymph # (Auto) 2.1, Martin # (Auto) 0.4, Eos # (Auto) 0.1, Baso # (Auto) 0.0, Sodium 142, Potassium 3.6, Chloride 105, Carbon Dioxide 27, Anion Gap 13.6, BUN 15, Creatinine 0.80, Estimated Creat Clear 162, Estimated GFR 114, Est GFR ( Amer) 137, Glucose 115 H, Calcium 9.6, Magnesium 1.9, Total Bilirubin 0.8, AST 70 H, ALT 143 H, Alkaline Phosphatase 99, Troponin I < 0.01, Total Protein 8.0, Albumin 4.9, Globulin 3.1, Albumin/Globulin Ratio 1.6, Lipase 104 Orders (Tests/Meds): ED MEDICATIONS Generic Name Dose Route Start Last Admin Trade Name Freq PRN Reason Stop Dose Admin Sodium Chloride 10 ml 07/27/24 13:38 07/27/24 14:40 Sodium Chloride 0.9% 10ml Vial IV 08/26/24 13:37 10 ml NEEDED PRN Administration dilute protonix Sodium Chloride 10 ml 07/27/24 14:34 07/27/24 14:35 Sodium Chloride 0.9% 10ml Syr (Rad Only) IV 08/26/24 14:33 10 ml NEEDED PRN Administration Maintain IV Site Discontinued Medications Generic Name Dose Route Start Last Admin Trade Name Freq PRN Reason Stop Dose Admin Acetaminophen 1,000 mg 07/27/24 14:08 07/27/24 14:52 Acetaminophen 1,000mg/100ml Vial IV 07/27/24 14:09 1,000 mg ONCE ONE Administration Aspirin 324 mg 07/27/24 13:38 07/27/24 14:40 Aspirin 81mg Chewable Tablet PO 07/27/24 13:39 324 mg ONCE ONE Administration Iopamidol 80 ml 07/27/24 14:34 07/27/24 14:35 Iopamidol-370 (76%);100ml Bottle IV 07/27/24 14:35 80 ml ONCE ONE Administration Ketorolac Tromethamine 15 mg 07/27/24 14:59 07/27/24 15:44 Ketorolac 30mg/Ml Vial IV 07/27/24 15:00 15 mg ONCE ONE Administration Meclizine HCl 25 mg 07/27/24 15:13 07/27/24 15:44 Meclizine 25mg Tablet PO 07/27/24 15:14 25 mg ONCE ONE Administration Metoclopramide HCl 10 mg 07/27/24 14:59 07/27/24 15:44 Metoclopramide 10mg Tablet PO 07/27/24 15:00 10 mg ONCE ONE Administration Pantoprazole Sodium 40 mg 07/27/24 13:38 07/27/24 14:30 Pantoprazole 40mg Vial IV 07/27/24 13:39 40 mg ONCE ONE Administration Sodium Chloride 50 ml 07/27/24 14:34 07/27/24 14:35 0.9 % Sodium Chloride 50 Ml Vial IV 07/27/24 14:35 50 ml ONCE ONE Administration ORDERS Category Date Time Status CT angio head Stat Cat Scan 07/27/24 13:[address] angio neck Stat Cat Scan 07/27/24 13:[address] head/brain wo con Stat Cat Scan 07/27/24 13:38 Completed CBC [Complete Blood Count Auto Diff] Stat Lab 07/27/24 14:06 Completed Comprehensive Metabolic Panel Stat Lab 07/27/24 14:06 Completed Lipase Stat Lab 07/27/24 14:06 Completed Magnesium Stat Lab 07/27/24 14:06 Completed Troponin I Stat Lab 07/27/24 14:06 Ordered Medical Decision Narrative: Patient is a 29-year-old male presenting to the emergency department for evaluation of elevated blood pressure at home with dizziness, nausea and shortness of air. He has over the last 2 months had some nausea every morning but no vomiting. He blames this on his reflux but forgets to take his medications he does deny headaches but feels like the world is moving around him. Patient is hemodynamically stable and nontoxic-appearing upon arrival, afebrile. However I have concern with his dizziness that I consulted Dr. Braxton. Differential diagnosis includes stroke, vertigo, viral illness, migraine among others. Workup will be conducted with lab work including normal labs CBC CMP, mag, troponin. I will scan his head and do CTAs of neck and head we will also get an EKG. Would like to give patient some Protonix for his complaint of epigastric discomfort and history of reflux.. Initial inventions include Protonix, Toradol and Reglan. Patient's labs were not actionable including the troponin and electrolytes. Please see radiology report for formal imaging as CT scans were negative. Upon repeat evaluation patient's symptoms have resolved and he is feeling better. We did discuss his vision and he says he has glasses but does not wear them this is a chronic problem. Patient is stable and can follow-up with primary care. Safe for discharge. Braxton: I was consulted by the RUBA, and we discussed the complexity of problems being addressed. I approved the treatment and management plan for this patient's care in the emergency department, thus performing a substantial portion of the medical decision making. I personally evaluated the patient. NIH 0, normal [id number] and [id number], no nystagmus, peripheral visual castillo intact. Patient does have poor visual acuity but admits that he has always had blurry vision and needs glasses. Patient states he does not have headache but does have some discomfort at the back of the head. I have very low suspicion for acute intracranial abnormality, however this will still be evaluated with CT imaging. Higher suspicion for possible vertigo, atypical migraine, electrolyte abnormality. ECG personally interpreted demonstrates normal sinus rhythm, rate 94, normal axis, normal AR and QTc, no STEMI. CT head personally turbid it does not demonstrate acute intracranial bleed, mass, or midline shift. See radiology read for final interpreted. CT angiography does not demonstrate large vessel occlusion, stenosis, or other vascular abnormality. Patient received IV acetaminophen, Toradol, Reglan, meclizine for symptomatic management. He had also received pantoprazole after reporting a history of reflux and mild chest pain. Labs been reviewed and are reassuring, not acutely actionable, no actionable electrolyte abnormalities, initial troponin undetectably low less than 0.01. Patient handed off to Dr. Schuster in stable condition pending reassessment. Kai Braxton MD I, Bud Schuster MD evaluated this patient personally. He has no neurologic deficits on my exam. He is supposed to wear glasses, that could be contributing to his blurry vision. He also endorses some swelling of his lip, that is now resolved. He does take losartan and follows with his PCP regarding this. She is aware of the swelling. I instructed him to make her aware of that again, but he has had no shortness of breath or multisystem involvement significant for anaphylaxis, so I am reassured. He feels completely back to his baseline all questions answered stricter precautions are given and he is amenable to plan and discharge at this time. Critical Care <Tosin Lovelace (ED), [employer] INBOARD/OUTBOARD - Last Filed: 07/27/24 16:08> Critical Care Time Critical Care Time: No
--- NOTE | 2024-07-27 14:20 | PC.NURSE ---
PT TO CT
--- NOTE | 2024-07-27 14:29 | PC.NURSE ---
PT RETURNED FROM CT
[2024-07-27] MEDS: PANTOPRAZOLE 40MG VIAL 40 MG IV (14:30)
[2024-07-27 14:35] LABS: Basophils % 0.3 % (0.1-2.0); Eosinophils # 0.1 K/mm3 (0.0-0.4); Eosinophils % 1.8 % (0.1-12.0); Hematocrit 47.4 % (42.0-52.0); Hemoglobin 17.2 g/dL (14.1-18.0); Lymphocytes # 2.1 K/mm3 (0.7-4.5); Lymphocytes % 35.2 % (10-50); Mean Corpuscular HGB Conc 36.3 g/dL (31.8-35.4); Mean Corpuscular Hemoglobin 31.5 pg (27.0-31.2); Mean Corpuscular Volume 86.8 fl (80-94); Monocytes # 0.4 K/mm3 (0.1-1.0); Monocytes % 7.2 % (1.7-9.3); Neutrophils # 3.3 K/mm3 (1.8-7.8); Neutrophils % 55.2 % (37.0-80.0); Platelet Count 256 K/mm3 (142-424); Red Blood Count 5.46 M/mm3 (4.60-6.20)
[2024-07-27] MEDS: IOPAMIDOL-370 (76%);100ML BOTTLE 80 ML IV (14:35)
[2024-07-27] MEDS: SODIUM CHLORIDE 0.9% 10ML SYR (RAD ONLY) 10 ML IV (14:35)
[2024-07-27] MEDS: 0.9 % SODIUM CHLORIDE 50 ML VIAL IV (14:35)
[2024-07-27] MEDS: ASPIRIN 81MG CHEWABLE TABLET 324 MG PO (14:40)
[2024-07-27] MEDS: SODIUM CHLORIDE 0.9% 10ML VIAL 10 ML IV (14:40)
[2024-07-27 14:43] LABS: Albumin Level 4.9 g/dl (3.5-5.0); Chloride 105 mmol/L (98-107); Potassium 3.6 mmoL/L (3.5-5.1); Sodium 142 mmol/L (136-145)
[2024-07-27 14:46] LABS: Alanine Aminotransferase 143 U/L (12-78); Albumin/Globulin Ratio 1.6 (1.1-1.8); Alkaline Phosphatase 99 U/L (38-126); Anion Gap 13.6 mEq/L (5-15); Aspartate Amino Transferase 70 U/L (17-59); Bilirubin,Total 0.8 mg/dl (0.2-1.3); Blood Urea Nitrogen 15 mg/dl (9-20); Calcium 9.6 mg/dl (8.4-10.2); Carbon Dioxide 27 mmol/L (22.0-30.0); Creatinine Clearance Estimated 162 mL/min (50-200); Estimated Glomerular Filt Rate 114 ml/min (>60); GFR (African American) 137 ML/MIN (>60); Globulin 3.1 g/dL (1.3-3.2); Glucose 115 mg/dl (74-100); Lipase 104 U/L (23-300); Magnesium 1.9 mg/dl (1.6-2.3)
[2024-07-27] MEDS: ACETAMINOPHEN 1,000MG/100ML VIAL 1000 MG IV (14:52)
[2024-07-27 14:58] LABS: Troponin I < 0.01 ng/ml (0.00-0.034)
--- NOTE | 2024-07-27 15:15 | PC.NURSE ---
VISUAL ACUITY L- NONE R- NONE B- 20/200
[2024-07-27] MEDS: KETOROLAC 30MG/ML VIAL 15 MG IV (15:44)
[2024-07-27] MEDS: MECLIZINE 25MG TABLET 25 MG PO (15:44)
[2024-07-27] MEDS: METOCLOPRAMIDE 10MG TABLET 10 MG PO (15:44)
--- NOTE | 2024-07-27 16:17 | PC.NURSE ---
dr bee at bedside to update pt and family
== END 2024-07-27 16:41 | disposition home or self-care (01) ==
LOC: UTC 13:13 → ER 13:13
PROVIDERS: Nurse Practitioner; Emergency Provider Emergency Medicine; PCP Nurse Practitioner Family
DX: M45.9 Ankylosing spondylitis of unspecified sites in spine (principal); I10 Essential (primary) hypertension; H81.10 Benign paroxysmal vertigo, unspecified ear; R11.0 Nausea; R06.02 Shortness of breath; H53.8 Other visual disturbances; F17.210 Nicotine dependence, cigarettes, uncomplicated
CPT/HCPCS: 70450; 70496; 70498; 80053; 83690; 83735; 84484; 85025; 93005; 96374; 96375; 99285; J0131; J1885; Q9967